=== PATIENT | male | born 1975 | race Caucasian/White ===

== ENCOUNTER 2017-11-17 23:47 | Emergency (ER) | payer SELFPAY ==
[~2017-11-17] VITALS: Ht 165.1 cm; Wt 62.0 kg
[2017-11-18] MEDS ORDERED: SODIUM CHLORIDE 0.9% 1,000 ML IV ONE (04:08)
[2017-11-18] MEDS ORDERED: ONDANSETRON HCL 4MG/2ML INJ IV STA (04:08)
[2017-11-18 04:33] LABS: CHLORIDE 104 mEq/L (98-107)
[2017-11-18 04:37] LABS: ETHANOL BLOOD 296 mg/dL
[2017-11-18 04:43] LABS: BASOPHILS % 0.2 % (0.0-2.0); EOSINOPHILS % 1.3 % (0.0-5.0); HEMATOCRIT. 30.2 % (42.0-52.0); HEMOGLOBIN. 9.7 g/dL (14.0-18.0); MEAN CORPUSCULAR HEMOGLOBIN 24.6 pg (28.0-32.0); MEAN CORPUSCULAR VOLUME 76.3 fL (80.0-94.0); MEAN PLATELET VOLUME 7.5 fl (7.4-10.4); MONOCYTES % 12.6 % (2.0-8.0); NEUTROPHILS % 34.9 % (40.0-76.0); PLATELET 124 x1000/uL (130-400); RED BLOOD CELL COUNT 3.96 mill/uL (4.7-6.1); RED CELL DISTRIBUTION WIDTH 23.4 % (11.6-14.6)
[2017-11-18 04:46] LABS: *BARBITURATES SCREEN URINE NEGATIVE (NEGATIVE); *BENZODIAZEPINES SCREEN URINE PRESUMTIVE POSITIVE (NEGATIVE)
[2017-11-18 04:47] LABS: *AMPHETAMINES SCREEN URINE NEGATIVE (NEGATIVE); *COCAINE SCREEN URINE NEGATIVE (NEGATIVE); METHADONE URINE SCREEN NEGATIVE (NEGATIVE); PHENCYCLIDINE URINE SCREEN NEGATIVE (NEGATIVE)
[2017-11-18 04:48] LABS: CANNABINOID URINE SCREEN NEGATIVE (NEGATIVE); OPIATES URINE SCREEN NEGATIVE (NEGATIVE)
[2017-11-18 07:01] LABS: PLATELET ESTIMATE SLIGHTLY DECREASED
[2017-11-18 11:30] VITALS: BP 99/61
== END 2017-11-18 11:46 | disposition home or self-care (01) ==
LOC: ER 23:47
DX: F10.229 Alcohol dependence with intoxication, unspecified (principal); Y90.8 Blood alcohol level of 240 mg/100 ml or more
CPT/HCPCS: 36415; 80053; 80305; 83690; 84484; 85025; 96361; 96374; 99284; G0482; J2405; J7030; Z7610